=== PATIENT | female | born 1970 | race Caucasian/White ===

== ENCOUNTER 2017-03-31 21:14 | Emergency (ER) | payer OTHER ==
[~2017-03-31] VITALS: Ht 11 cm; Wt 95.3 kg
[2017-03-31] MEDS ORDERED: ONDANSETRON ODT 4 MG TAB.RAPDIS SL ONE (21:30)
[2017-03-31] MEDS ORDERED: OXYCODONE/APAP 5-325 MG TABLET PO ONE (21:30)
[2017-03-31] MEDS ORDERED: SERT100T PO (21:41)
[2017-03-31] MEDS ORDERED: FOLI1TAB16 PO (21:41)
[2017-03-31] MEDS ORDERED: HYDR-548 PO (21:41)
[2017-03-31] MEDS ORDERED: GABA-534 PO (21:41)
[2017-03-31] MEDS ORDERED: TRAZ-144 PO (21:41)
[2017-03-31] MEDS ORDERED: NAPR500T6 PO (21:41)
[2017-03-31 21:45] LABS: HEMATOCRIT 27.6 % (37-47); HEMOGLOBIN 8.7 G/DL (12.0-16.0); MEAN CORPUSCULAR HEMOGLOBIN 20.9 UUG (27.0-31.0); MEAN CORPUSCULAR HGB CONC 32 g/dL (32.0-37.0); MEAN CORPUSCULAR VOLUME 66.4 FL (81.0-99.0); PLATELET COUNT (AUTO) 301 K/UL (150-450); RED BLOOD CELL COUNT(AUTO) 4.16 MIL/UL (4.2-5.4); WHITE BLOOD COUNT (AUTO) 7.5 K/UL (4.0-11.2)
[2017-03-31 21:52] LABS: CREATININE 0.8 mg/dL (0.6-1.3); POTASSIUM 3.8 mmol/L (3.5-5.1)
[2017-03-31] MEDS ORDERED: OXYCODONE/APAP 5-325 MG TABLET ONE (21:55)
[2017-03-31] MEDS ORDERED: ONDANSETRON ODT 4 MG TAB.RAPDIS ONE (21:55)
[2017-03-31 21:57] LABS: BILIRUBIN,TOTAL 0.4 mg/dL (0.2-1.0); TOTAL PROTEIN, SERUM 7.5 g/dL (6.4-8.2)
[2017-03-31 21:58] LABS: NEUTROPHILS % (MANUAL) 68 % (42-75)
[2017-03-31 21:59] LABS: BAND % (MANUAL) 0 % (0-10); BASOPHILS % (MANUAL) 0 % (0-2); EOSINOPHILS % (MANUAL) 3 % (0-8); LYMPHOCYTES % (MANUAL) 22 % (20-40); MONOCYTES % (MANUAL) 6 % (2-10)
--- NOTE | 2017-03-31 22:35 | NUR ---
Radiology at bedside for US.
--- NOTE | 2017-04-01 00:38 | NUR ---
Patient discharged to home in stable conditon. Written and verbal after care instructions given. Patient verbalizes understanding of instructions.
== END 2017-04-01 01:11 | disposition home or self-care (01) ==
LOC: ER 21:18
DX: G89.4 Chronic pain syndrome (principal); R60.9 Edema, unspecified; K21.9 Gastro-esophageal reflux disease without esophagitis
CPT/HCPCS: 36415; 84703; 85025; 85651; 86140; A4663; Q0162

== ENCOUNTER 2017-05-09 03:38 | Emergency (ER) | payer OTHER ==
[~2017-05-09] VITALS: Ht 149.9 cm; Wt 97.1 kg
[~2017-05-09 03:38] MED LIST: FOLI1TAB16 PO; GABA-534 PO; HYDR-548 PO; NAPR500T6 PO; SERT100T PO; TRAZ-144 PO
--- NOTE | 2017-05-09 04:05 | NUR ---
Came in c/o rashes all over the body. To room 2B. Patient AAO, speaks [place] only. NAD noted.
--- NOTE | 2017-05-09 04:10 | NUR ---
Seen and evaluated by Dr. Cody.
[2017-05-09] MEDS ORDERED: diphenhydrAMINE 50 MG CAPSULE PO ONE (04:30)
[2017-05-09] MEDS ORDERED: EPINEPHRINE 1 MG/1 ML AMP SQ ONE (04:30)
[2017-05-09] MEDS ORDERED: FAMOTIDINE 20 MG TABLET PO ONE (04:30)
[2017-05-09] MEDS ORDERED: predniSONE 10 MG TABLET PO ONE (04:30)
[2017-05-09] MEDS ORDERED: EPINEPHRINE 1 MG/1 ML AMP ONE (04:48)
[2017-05-09] MEDS ORDERED: FAMOTIDINE 20 MG TABLET ONE (04:48)
[2017-05-09] MEDS ORDERED: predniSONE 10 MG TABLET ONE (04:49)
[2017-05-09] MEDS ORDERED: predniSONE 50 MG TABLET ONE (04:49)
[2017-05-09] MEDS ORDERED: diphenhydrAMINE 50 MG CAPSULE ONE (04:49)
--- NOTE | 2017-05-09 05:15 | NUR ---
Feeling better after medications. Hives and rashes subsided.
--- NOTE | 2017-05-09 05:30 | NUR ---
Patient discharged to home in stable conditon. Written and verbal after care instructions given. Patient verbalizes understanding of instructions.
[2017-05-09 05:34] VITALS: BP 149/82
== END 2017-05-09 05:30 | disposition home or self-care (01) ==
LOC: ER 03:42
DX: L50.9 Urticaria, unspecified (principal); M79.7 Fibromyalgia; K21.9 Gastro-esophageal reflux disease without esophagitis; I10 Essential (primary) hypertension; E78.5 Hyperlipidemia, unspecified
CPT/HCPCS: A4663; J0171; J7512; Q0163